=== PATIENT | female | born 1975 | race Caucasian/White ===

== ENCOUNTER → 2016-08-29 | Outpatient (REF) ==
[~2016-08-29] MED LIST: ABILIFY 10MG TA10 MG PO; ALBUTEROL0.09 MG/A4 IH; AMLODIPINE BES2.5 MG PO; ASPIRIN 32325 MG/TAB PO; ASPIRIN 81M81 MG/TA2 PO; ASPIRIN E.C. 8181 MG PO; CLOPIDOGREL; COREG 25MG25 MG/TAB PO; DESYREL 50MG50 MG PO; DEXILANT60 MG PO; DIABETA 5MG5 MG/TAB PO; DIABETA2.5 MG PO; FERROUS SULFATE65 MG PO; FETZIMA20 PO; GLUCOPHAGE500 MG/TAB PO; GLUCOPHAGE850 MG/TAB PO; GLYBURIDE2.5 MG PO; GLYBURIDE5 MG PO; IMDUR 60MG60 MG/TAB PO; IMDUR30 MG PO; ISOSORBIDE30 MG PO; K-DUR20 MEQ PO; LABETALOL100 MG PO; LEVAQUIN 5500 MG/TA1 PO; LIPITOR20 MG PO; LISINOPRIL PO; LISINOPRIL10 MG PO; LISINOPRIL40 MG PO; LOPRESSOR 550 MG/TAB PO; LOPRESSOR100 MG PO; LOPRESSOR50 MG PO; LORTAB 5/500 501 TAB; LOVENOX 8080 MG/0.8 SQ; LOW DOSE ASPIRI81 MG PO; METFORMIN HCL500 MG PO; METFORMIN500 MG PO; MEVACOR10 MG PO; NAPROSYN500 MG PO; NEW BP MED; NICODERM C21 MG/PATC TOP; NITROQUICK0.4 MG SL; NITROSTAT0.4 MG SL; NITROSTAT0.4 MG/TAB SL; NO HOME MEDICATIONS; NORCO 325 MG-51 TAB PO; NORVASC 10MG10 MG PO; NORVASC 5MG5 MG/TAB PO; PEN-V500 MG PO; PERCOCET 325 MG1 TA2 PO; PHENERGAN 25 TA25 MG PO; PHENERGAN W/CO120 ML PO; PHENERGAN25 MG RC; PLAVIX 75MG TAB75 MG PO; PRAVACHOL 40MG40 MG PO; PRAVACHOL10 MG PO; PRAVACHOL40 MG PO; PRAVASTATIN SOD40 MG PO; PRILOSEC 20MG20 MG PO; REBIF44 MCG/0.5 SC; SIMVASTATIN80 MG PO; TOPROL XL 25MG25 MG PO; TOPROL XL100 MG PO; TRIBENZOR 10 MG1 TA1 PO; TYLENOL 325MG325 MG PO; ULTRAM 50MG TAB50 MG PO; UNABLE; VENTOLIN0.09 MG IH; VICTOZA6 MG/ML SQ; VITAMIN C500 MG PO; XARELTO20 MG PO; ZESTRIL 20MG TA20 MG PO; ZITHROMAX 250M250 MG PO; ZOCOR 40MG40 MG PO; ZOCOR40 MG PO; ZOLOFT 25MG25 MG PO; [UNRECOGNIZED DRUG - REMARK]
== END ==
LOC: ZLAB.WCH 11:19
DX: Z01.89 Encounter for other specified special examinations (principal)

== ENCOUNTER → 2016-10-02 | Outpatient (REF) ==
[2016-10-02 11:33] LABS: THYROID STIMULATING HORMONE 1.08 uIU/mL (0.465-4.680)
== END ==
LOC: ZLAB.WCH 10:23
PROVIDERS: Internal Medicine
DX: Z01.89 Encounter for other specified special examinations (principal)

== ENCOUNTER 2016-10-15 08:44 | Day surgery (SDC) | payer MEDICARE, MEDICAID ==
[~2016-10-15] VITALS: Ht 162.6 cm; Wt 59.1 kg
[~2016-10-15 08:44] MED LIST changes: -DEXILANT60 MG PO; -FERROUS SULFATE65 MG PO; -FETZIMA20 PO; -K-DUR20 MEQ PO; -LOVENOX 8080 MG/0.8 SQ; -PERCOCET 325 MG1 TA2 PO; -VICTOZA6 MG/ML SQ; -VITAMIN C500 MG PO; -XARELTO20 MG PO
[2016-10-15 09:26] VITALS: BP 123/76; PULSE 85; TEMP 98
[2016-10-15] MEDS ORDERED: XARELTO20 MG PO (09:39)
[2016-10-15] MEDS ORDERED: LOVENOX 8080 MG/0.8 SQ (09:40)
[2016-10-15] MEDS ORDERED: FETZIMA20 PO (09:41)
[2016-10-15] MEDS ORDERED: ULTRAM 50MG TAB50 MG PO (09:43)
[2016-10-15] MEDS ORDERED: DEXILANT60 MG PO (09:44)
[2016-10-15] MEDS ORDERED: K-DUR20 MEQ PO (09:45)
[2016-10-15] MEDS ORDERED: VITAMIN C500 MG PO (09:46)
[2016-10-15] MEDS ORDERED: DESYREL 50MG50 MG PO (09:46)
[2016-10-15] MEDS ORDERED: FERROUS SULFATE65 MG PO (09:47)
[2016-10-15] MEDS ORDERED: VICTOZA6 MG/ML SQ (09:48)
[2016-10-15] MEDS ORDERED: PERCOCET 325 MG1 TA2 PO (11:32)
[2016-10-15 11:50] VITALS: BP 139/77; PULSE 77; TEMP 97.6
[2016-10-15 12:05] VITALS: BP 154/86; PULSE 82
[2016-10-15 12:20] VITALS: BP 155/86; PULSE 79
[2016-10-15 12:40] VITALS: BP 156/83; PULSE 81
[2016-10-15 12:46] VITALS: BP 136/84; PULSE 81; TEMP 98
== END 2016-10-15 13:00 | disposition home or self-care (01) ==
LOC: SDCO 08:44
DX: N92.0 Excessive and frequent menstruation with regular cycle (principal); D64.9 Anemia, unspecified; E11.3519 Type 2 diabetes mellitus with proliferative diabetic retinopathy with macular edema, unspecified eye; G35 Multiple sclerosis; I69.359 Hemiplegia and hemiparesis following cerebral infarction affecting unspecified side; I69.319 Unspecified symptoms and signs involving cognitive functions following cerebral infarction; I10 Essential (primary) hypertension
CPT/HCPCS: J2704; J3010; J7060; J7120

== ENCOUNTER → 2016-10-31 | Outpatient (REF) ==
[~2016-10-31] MED LIST changes: +DEXILANT60 MG PO; +FERROUS SULFATE65 MG PO; +FETZIMA20 PO; +K-DUR20 MEQ PO; +LOVENOX 8080 MG/0.8 SQ; +PERCOCET 325 MG1 TA2 PO; +VICTOZA6 MG/ML SQ; +VITAMIN C500 MG PO; +XARELTO20 MG PO
[2016-10-31 12:08] LABS: TOTAL IRON BINDING CAPACITY 349 ug/dL (265-497)
[2016-10-31 12:28] LABS: FERRITIN 24 ng/mL (6-137)
== END ==
LOC: ZLAB.WCH 11:12
PROVIDERS: Internal Medicine
DX: Z01.89 Encounter for other specified special examinations (principal)

== ENCOUNTER → 2017-01-04 | Outpatient (CLI) | payer MEDICARE, MEDICAID | LOC: COL.RAD 08:12 | DX: R11.2 Nausea with vomiting, unspecified (principal) | CPT/HCPCS: A9541 ==

== ENCOUNTER → 2017-04-08 | Outpatient (REF) ==
[2017-04-09 13:49] LABS: HIV 1/2 Antibodies Non-Reactive; HIV-1p24 Antigen Non-Reactive
== END ==
LOC: ZLAB.WCH 19:58
PROVIDERS: Internal Medicine
DX: Z01.89 Encounter for other specified special examinations (principal)

== ENCOUNTER → 2017-09-16 | Outpatient (REF) ==
[2017-09-16 18:57] LABS: THYROID STIMULATING HORMONE 1.44 uIU/mL (0.465-4.680)
== END ==
LOC: ZLAB.WCH 17:58
PROVIDERS: Internal Medicine
DX: Z01.89 Encounter for other specified special examinations (principal)

== ENCOUNTER → 2018-08-04 | Outpatient (REF) ==
[2018-08-04 19:41] LABS: IRON,SERUM 80 ug/dL (35-150)
[2018-08-04 19:51] LABS: TOTAL IRON BINDING CAPACITY 328 ug/dL (265-497)
[2018-08-04 20:16] LABS: FERRITIN 12 ng/mL (6-137)
== END ==
LOC: ZLAB.WCH 19:21
PROVIDERS: Internal Medicine
DX: Z01.89 Encounter for other specified special examinations (principal)